=== PATIENT | male | born 1975 | race Two or more races ===

== ENCOUNTER 2022-02-27 02:30 | Inpatient (IN) | payer MEDICAID ==
[~2022-02-27] VITALS: Ht 172.7 cm; Wt 65.8 kg
[2022-02-27] MEDS ORDERED: LEVE500T9 PO (02:46)
[2022-02-27] MEDS ORDERED: PHEN100C4 PO (02:46)
[2022-02-27] MEDS ORDERED: ONDANSETRON 4 MG/2 ML VIAL IV ONE (03:00)
[2022-02-27] MEDS ORDERED: IV NORMAL SALINE 1000 ML BAG IV ONE (03:00)
[2022-02-27] MEDS ORDERED: PANTOPRAZOLE SODIUM IV 80 MG in IV DEXTROSE 5% 100 ML IV ONE (03:00)
[2022-02-27] MEDS ORDERED: HYDROMORPHONE 1 MG/1 ML DISP.SYRIN IV ONE (03:00)
[2022-02-27] MEDS ORDERED: ONDANSETRON 4 MG/2 ML VIAL ONE (03:03)
[2022-02-27] MEDS ORDERED: HYDROMORPHONE 1 MG/1 ML DISP.SYRIN ONE (03:04)
[2022-02-27] MEDS ORDERED: PANTOPRAZOLE SODIUM 40 MG VIAL ONE (03:04)
[2022-02-27 03:22] LABS: MEAN CORPUSCULAR HEMOGLOBIN 17.1 uug (23.8-33.4); MEAN CORPUSCULAR VOLUME 57.1 fL (73.0-96.2); PLATELET COUNT (AUTO) 332 K/uL (152-348)
[2022-02-27 03:38] LABS: ALANINE AMINOTRANSFERASE 11 U/L (16-63); ALKALINE PHOSPHATASE 102 U/L (50-136); ASPARTATE AMINOTRANSFERASE 8 U/L (15-37); BILIRUBIN,DIRECT 0.1 mg/dL (0.0-0.2); BILIRUBIN,TOTAL 0.5 mg/dL (0.2-1.0); CARBON DIOXIDE 26 mmol/L (21-32); CHLORIDE 104 mmol/L (98-107); CREATININE 0.5 mg/dL (0.6-1.3); GLUCOSE 88 mg/dL (74-106); LIPASE 71 U/L (73-393); POTASSIUM 3.7 mmol/L (3.5-5.1); TOTAL PROTEIN, SERUM 5.9 g/dL (6.4-8.2); UREA NITROGEN, BLOOD 14 mg/dL (7-18)
[2022-02-27 03:47] LABS: *OCCULT BLOOD STOOL NEGATIVE (NEGATIVE)
[2022-02-27] MEDS ORDERED: ACETAMINOPHEN 325 MG TABLET PO PRN (06:30)
[2022-02-27] MEDS ORDERED: HYDROCODONE/APAP 5-325MG TABLET PO PRN (06:30)
[2022-02-27] MEDS ORDERED: REMEDY ESSENTIAL ZINC PASTE 113 GM TP PRN (06:30)
[2022-02-27] MEDS ORDERED: MORPHINE SULFATE 4 MG/1 ML DISP.SYRIN IV PRN (06:30)
[2022-02-27] MEDS ORDERED: ONDANSETRON 4 MG/2 ML VIAL IV PRN (06:30)
[2022-02-27] MEDS ORDERED: MAGNESIUM HYDROXIDE 30 ML LIQUID UDC PO PRN (06:30)
[2022-02-27] MEDS ORDERED: [UNRECOGNIZED DRUG - REMARK] XX ONE (07:15)
[2022-02-27 07:19] LABS: MEAN CORPUSCULAR HEMOGLOBIN 17.1 uug (23.8-33.4); MEAN CORPUSCULAR VOLUME 59.3 fL (73.0-96.2); PLATELET COUNT (AUTO) 299 K/uL (152-348)
[2022-02-27 07:23] LABS: BAND % (MANUAL) 1 % (0-10); EOSINOPHILS % (MANUAL) 5 % (0-8); LYMPHOCYTES % (MANUAL) 10 % (20-40); MONOCYTES % (MANUAL) 3 % (2-10); NEUTROPHILS % (MANUAL) 81 % (42-75)
[2022-02-27] MEDS ORDERED: PANTOPRAZOLE SODIUM 40 MG VIAL IV SCH (09:00)
[2022-02-27 09:34] VITALS: BP 138/94
[2022-02-27] MEDS: IV D5 1/2 NS 1000 ML 1,000 ML IV PRN (11:00)
[2022-02-27 12:00] VITALS: BP 134/85
[2022-02-27] MEDS ORDERED: PIPERACILLIN SODIUM/TAZOBACTAM 3.375 G in IV DEXTROSE 5% 50 ML IV SCH (12:00)
[2022-02-27] MEDS: PANTOPRAZOLE SODIUM 40 MG VIAL IV SCH ×2 (12:34→20:48)
[2022-02-27] MEDS ORDERED: PIPERACILLIN SODIUM/TAZOBACTAM 3.375 G in IV DEXTROSE 5% 100 ML IV SCH (14:00)
[2022-02-27 15:15] LABS: THYROID STIMULATING HORMONE 0.83 mIU/mL (0.358-3.740)
[2022-02-27 16:00] VITALS: BP 146/99
[2022-02-27 20:00] VITALS: BP 129/86
[2022-02-28] VITALS: BP 130/88
[2022-02-28] MEDS: IV D5 1/2 NS 1000 ML 1,000 ML IV PRN ×2 (02:21→20:47)
[2022-02-28 04:00] VITALS: BP 129/87
[2022-02-28 06:44] LABS: HEMATOCRIT 29.2 % (36.7-47.1); MEAN CORPUSCULAR HEMOGLOBIN 16.8 uug (23.8-33.4); MEAN CORPUSCULAR VOLUME 57.3 fL (73.0-96.2); PLATELET COUNT (AUTO) 381 K/uL (152-348)
[2022-02-28 06:50] LABS: CARBON DIOXIDE 28 mmol/L (21-32); CHLORIDE 102 mmol/L (98-107); CREATININE 0.6 mg/dL (0.6-1.3); GLUCOSE 93 mg/dL (74-106); PHOSPHOROUS 3.1 mg/dL (2.5-4.9); POTASSIUM 3.8 mmol/L (3.5-5.1); UREA NITROGEN, BLOOD 9 mg/dL (7-18)
[2022-02-28 08:06] LABS: *IMMUNOGLOBULIN G, SERUM 1064 mg/dL (603-1613); A/G RATIO 0.8 (0.7-1.7); ALBUMIN 2.5 g/dL (2.9-4.4); ALPHA-1-GLOBULIN 0.4 g/dL (0.0-0.4); GLOBULIN, TOTAL 3.3 g/dL (2.2-3.9); IMMUNOGLOBULIN A, SERUM 313 mg/dL (90-386); IMMUNOGLOBULIN M, SERUM 54 mg/dL (20-172); M-SPIKE Not Observed g/dL (Not Observed)
[2022-02-28] MEDS: PANTOPRAZOLE SODIUM 40 MG VIAL IV SCH ×2 (08:36→20:47)
[2022-02-28 11:49] VITALS: BP 118/77
[2022-02-28] MEDS: SOD FERRIC GLUC COMPLX/SUCROSE 125 MG in IV NORMAL SALINE 100 ML IV SCH (13:52)
[2022-02-28] MEDS: CYANOCOBALAMIN 1000 MCG/ML VIAL IM SCH (13:52)
[2022-02-28 15:17] VITALS: BP 127/79
[2022-02-28 20:00] VITALS: BP 128/90
[2022-03-01] VITALS: BP 127/79
[2022-03-01 04:00] VITALS: BP 130/88
[2022-03-01 06:02] LABS: HEMATOCRIT 29.6 % (36.7-47.1); MEAN CORPUSCULAR HEMOGLOBIN 17.1 uug (23.8-33.4); MEAN CORPUSCULAR VOLUME 57.5 fL (73.0-96.2); PLATELET COUNT (AUTO) 360 K/uL (152-348)
[2022-03-01 06:22] LABS: CREATININE 0.7 mg/dL (0.6-1.3); PHOSPHOROUS 2.9 mg/dL (2.5-4.9); POTASSIUM 3.9 mmol/L (3.5-5.1)
[2022-03-01] MEDS: IV D5 1/2 NS 1000 ML 1,000 ML IV PRN (06:29)
[2022-03-01] MEDS: CYANOCOBALAMIN 1000 MCG/ML VIAL IM SCH (09:21)
[2022-03-01] MEDS: PANTOPRAZOLE SODIUM 40 MG VIAL IV SCH (09:21)
[2022-03-01 11:59] VITALS: BP 126/89
[2022-03-01] MEDS: SOD FERRIC GLUC COMPLX/SUCROSE 125 MG in IV NORMAL SALINE 100 ML IV SCH (14:18)
[2022-03-01 16:01] VITALS: BP 122/82
== END 2022-03-01 17:00 | disposition left against medical advice (07) | DRG 240 ==
LOC: ER 02:35 → MEDSURG3 08:40 → TELE3 09:42 → MEDSURG3 03-01 06:03
PROVIDERS: ADMIT Nurse Practitioner Acute Care; ATTEND Nurse Practitioner Acute Care
DX: C16.9 Malignant neoplasm of stomach, unspecified (principal); E44.0 Moderate protein-calorie malnutrition; C78.6 Secondary malignant neoplasm of retroperitoneum and peritoneum; D50.9 Iron deficiency anemia, unspecified; G89.3 Neoplasm related pain (acute) (chronic); Z20.822 Contact with and (suspected) exposure to COVID-19; Z59.00 Homelessness unspecified; Z88.0 Allergy status to penicillin; E88.09 Other disorders of plasma-protein metabolism, not elsewhere classified; Z68.22 Body mass index [BMI] 22.0-22.9, adult; D63.0 Anemia in neoplastic disease
CPT/HCPCS: 36415; 70030-TC; 71045; 71250; 76705; 82378; 82746; 82784; 83550; 83690; 83735; 84100; 84153; 84155; 84165; 84443; 85025; 85730; 86334; 86850; 86900; 86901; 93005; 93307; 97161; A4663; C9113; G0378; J1170; J2405; J2916; J3420; J7040; U0003